=== PATIENT | male | born 1995 ===

== ENCOUNTER 2019-06-17 20:44 | Emergency (ER) | payer SELFPAY ==
[2019-06-17] MEDS ORDERED: Diphtheria,Pertussis(Acell),Tetanus Vaccine 0.5 ML Syringe IM ONE (20:57)
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
== END 2019-06-17 21:22 | disposition home or self-care (01) ==
LOC: MW.ED 20:44
DX: S51.051A Open bite, right elbow, initial encounter (principal); Z23 Encounter for immunization; Y04.1XXA Assault by human bite, initial encounter
CPT/HCPCS: 90471; 90715; 99283